=== PATIENT | male | born 1970 | race African-American/Black ===

== ENCOUNTER 2024-05-30 23:09 | Emergency (ER) | payer BC, MEDICAID ==
[2024-05-30] MEDS: Bacitracin Oint 1 GM U/D Packet TOP ONE (23:51)
[2024-05-31 00:02] VITALS: BP 119/80; PULSE 73
== END 2024-05-31 00:01 | disposition home or self-care (01) ==
LOC: MW.ED 23:09
DX: L98.9 Disorder of the skin and subcutaneous tissue, unspecified (principal); T49.95XA Adverse effect of unspecified topical agent, initial encounter; Z95.1 Presence of aortocoronary bypass graft
CPT/HCPCS: 99283